=== PATIENT | male | born 1960 | race Caucasian/White ===

== ENCOUNTER 2024-06-12 01:56 | Day surgery (SDC) | payer BC, SELFPAY ==
[2024-03-05 15:05] VITALS: BMI 29.0
--- NOTE | 2024-03-13 08:29 | SUR.PREOP ---
Pt's called regarding her was feeling ill yesterday but took his prep and proceeded to continue to feel ill. Patient ended up vomiting prep and cancelled his procedure today. Pt rescheduled to 05/12 at 1230.
[2024-06-05 11:01] VITALS: BMI 28.8
--- OUTSIDE RECORDS SUMMARY | 2024-06-12 02:02 | XMS_ITS | Referral Summary ---
Author Organization [facility] Address [address] [place] [address] Care Team Providers Care Service Liaison Representative Name Role Phone Deon Kim MD Primary Care Provider Allergies No known active allergies Medications losartan (COZAAR) 100 mg tablet 10/18/2022 Active metFORMIN (GLUCOPHAGE) 500 mg tablet 09/27/2022 Activ e metoprolol XL (TOPROL-XL) 200 mg extended release tablet 10/18/2022 Acti ve rosuvastatin (CRESTOR) 40 mg tablet 10/18/2022 Active spironolactone (ALDACTONE) 50 mg tablet 07/24/2022 Active amoxicillin 500 mg capsule TAKE 1 CAPSULE BY MOUTH EVERY 8 HOURS 08/01/2022 Active Active Problems Problem Noted Date Diagnosed Date Multiple benign melanocytic nevi of upper extremity, lower extremity, and trunk 02/10/2021 10/26/2022 Other viral warts 02/10/2021 10/26/2022 Seborrheic keratosis 02/10/2021 10/26/2022 Solar lentiginosis 02/10/2021 10/26/2022 Arteriosclerosis of coronary artery 02/19/2020 10/26/2022 Prediabetes 04/03/2019 10/26/2022 Abnormal EKG 06/04/2018 10/26/2022 Obesity 07/23/2016 10/26/2022 Snoring 07/23/2016 10/26/2022 Hypercholesterolemia 09/15/2014 10/26/2022 Primary hypertension 09/15/2014 10/26/2022 Immunizations Name Administration Dates Next Due Influenza, Quadrivalent, Malika l Culture-based MDCK, Preservative Free, Antibiotic Free, Intramuscular 03/17/2022 Influenza, Quadrivalent, Spl it, Preservative Free, Intramuscular 02/12/2020,02/28/2019 Influenza, Trivalent, IM (MDV) 02/23/2021 Tdap 11/20/2017 Social History Tobacco Use Types Packs/Day Years Used Date Smoking Tobacco: Never Assessed Sex and Gender Information Value Date Recorded Sex Assigned at Not on file 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 Gender Identity Not on file Sexual Orientation Not on file Last Filed Vital Signs Vital Sign Reading Time Taken Comments Blood Pressure - - Pulse - - Temperature - - Respiratory Rate - - Oxygen Saturation - - Inhaled Oxygen Concentration - - Weight 86.2 kg (190 lb) 10/26/2022 9:34 AM CDT Height 172.7 cm (5' 8 ) 10/26/2022 9:34 AM CDT Body Mass Index 28.89 10/26/2022 9:34 AM CDT Plan of Treatment Not on file Insurance [employer] Care Teams Service Liaison Representative Relationship Specialty Start Date End Date Deon Kim MD [address] [place] [address] PCP - General Internal Medicine 10/26/22
--- OUTSIDE RECORDS SUMMARY | 2024-06-12 02:02 | XMS_ITS | Patient Health Summary ---
Author Organization [facility] Address [address] [place] [address] Care Team Providers Care Balance Staff Inspector Name Role Phone Deon Kim MD Primary Care Provider [phone] Note from [facility],non-owned Affiliates and Associated Physician Practices is amultiple site organization consisting of ambulatory clinics and hospital sitesin [place], [place], [place] and [place]. This disclosure is being madepursuant to the Care Everywhere program and may not contain all information available regarding this patient. Last updated 18.[facility] Allergies No known active allergies Medications * Be aware that medications may not be up to date on this document. Alwaysverify current medications with the patient. * atorvastatin (LIPITOR) 20 MG tablet(Started 03/18/2018) 40 mg at bedtime * losartan (COZAAR) 25 MG tablet(Started 05/27/2018) at bedtime * TOPROL XL 100 MG tablet(Started 04/15/2018) 50 mg at bedtime * aspirin (ASPIRIN) 81 MG tablet Take 81 mg by mouth once daily * Douglas-3 Fatty Acids (FISH OIL PO) Take by mouth once daily * ondansetron (ZOFRAN) 8 MG tablet(Started 07/25/2018) Take 1 tablet by mouth every 6 hours as needed for Nausea/Vomiting * metFORMIN (GLUCOPHAGE) 500 MG tablet metformin 500 mg tablet * simvastatin (ZOCOR) 40 MG tablet simvastatin 40 mg tablet TAKE 1 TABLET AT BEDTIME FOR CHOLESTEROL * rosuvastatin (CRESTOR) 40 MG tablet(Started 11/20/2020) Active Problems Problem Noted Date Diagnosed Date Other viral warts 02/10/2021 Solar lentiginosis 02/10/2021 Multiple benign melanocytic nevi of upper extremity, lower extremity, and trunk 02/10/2021 Seborrheic keratosis 02/10/2021 Social History Tobacco Use Types Packs/Day Years Used Date Smoking Tobacco: Never Smokeless Tobacco: Never Alcohol Use Standard Drinks/Week Comments Yes 0 (1 standard drink = 0.6 oz pur e alcohol) Sex and Gender Information Value Date Recorded Sex Assigned at Male 12/07/2022 11:07 PM CDT Gender Identity Male 12/07/2022 11:07 PM CDT Sexual Orientation Not on file Last Filed Vital Signs Vital Sign Reading Time Taken Comments Blood Pressure 133/90 09/16/2018 10:28 AM CDT Pulse 73 09/16/2018 10:28 AM CDT Temperature 36.4 ??C (97.5 ??F) 09/16/2018 10:28 AM C DT Respiratory Rate 16 07/25/2018 6:16 PM CDT Oxygen Saturation 96% 09/16/2018 10:28 AM CDT Inhaled Oxygen Concentration - - Weight 88.9 kg (196 lb) 09/16/2018 10:28 AM CDT Height 177.8 cm (5' 10 ) 09/16/2018 10:28 AM CDT Body Mass Index 28.12 09/16/2018 10:28 AM CDT Medical Devices Implanted Type Area Project Asst Device Identifier Shelf Expiration Date Model / Serial / Lot Mesh Srg 3dmax 7x5in Xl 3d Crv Contr Sl Implanted:Qty: 1 on 07/25/2018 by Joshua Hopkins MD at [facility] Right: Abdomen [employer] 10/07/2022 [id number] / / [id number] Mesh Srg 3dmax 7x5in Xl 3d Crv Contr Sl Implanted:Qty: 1 on 07/25/2018 by Joshua Hopkins MD at [facility] Left: Abdomen [employer] 09/07/2022 [id number] / / [id number] Procedures * VA DESTRUCT BENIGN LESION, 1-14(Performed 02/10/2021) Performed for Other viral warts * CARDIAC RHYTHM STRIP ORDER(Performed 07/29/2018) * APHERESIS/TRANSFUSION ORDER(Performed 07/29/2018) * ENDOTRACHEAL TUBE NOTE(Performed 07/25/2018) * ROBOTIC ASSISTED REPAIR INGUINAL HERNIA(Performed 07/25/2018) Performed for Diagnosis unknown * BLOOD TYPE VERIFICATION(Performed 07/25/2018) * XR CHEST 2VW(Performed 07/23/2018) Performed for Pre-op testing * EKG 12-LEAD(Performed 07/23/2018) Performed for Pre-op testing * TYPE + SCREEN PANEL(Performed 07/23/2018) Performed for Pre-op testing * CBC W AUTO DIFFERENTIAL(Performed 07/23/2018) Performed for Pre-op testing * COMPREHENSIVE METABOLIC PANEL(Performed 07/23/2018) Performed for Pre-op testing * DERMATOPATHOLOGY(Performed 06/06/2012) Results * VA DESTRUCT BENIGN LESION, 1-14 (02/10/2021 12:13 PM CDT) Narrative Antonio Koch MD - 02/10/2021 12:13 PM CDT Viridiana Carrion MD ? 02/10/2021 12:13 PM Diagnosis and treatment options discussed for verrucae vulgaris. Verbal consent obtained. Cryotherapy (Liquid Nitrogen) performed to 2 VV lesions (mid-frontal scalp x1 and L cheek x1) for 10-15 seconds each. Number of cycles: 2. Wound care reviewed and post-cryotherapy handout given. Viridiana Carrion MD Dermatology Resident, PGY-3 [facility], Department of Dermatology Antonio Koch MD PROCEDURE/MINOR SURG ICAL ORDERABLES * CARDIAC RHYTHM STRIP ORDER (07/29/2018 9:14 PM CDT) Narrative 07/29/2018 9:14 PM CDT Ordered by an unspecified provider. Scanned Document CARDIAC SERVICES ORD ERABLES * APHERESIS/TRANSFUSION ORDER (07/29/2018 9:14 PM CDT) Narrative 07/29/2018 9:14 PM CDT Ordered by an unspecified provider. Scanned Document NURSING - VITAL SIGN S AND ASSESSMENT * BLOOD TYPE VERIFICATION (07/25/2018 9:58 AM CDT) ABO A 07/25/2018 10:30 AM CDT [facility] Rh Type Negative 07/25/2018 10:30 AM CDT [facility] Blood Bank BLOOD SPECIMEN / Unknown Venipuncture / Unknown 07/25/2018 9:58 AM CDT 07/25/2018 10:08 AM CDT Joshua Hopkins MD LAB - BLOOD BANK ORD ERABLES [facility] [address] [phone] * XR CHEST 2VW (07/23/2018 1:55 PM CDT) Anatomical Region Laterality Modality Chest Radiographic Aiyana ging 07/23/2018 1:57 PM CDT Narrative 07/23/2018 1:57 PM CDT Exam: PA and lateral views of the chest. History: Encounter for other preprocedural examination Findings/Impression: No previous studies are available for comparison. No focal consolidation, pleural effusion, or pneumothorax is identified. The cardiac silhouette and mediastinal contours are normal. Reading Radiologist: Roshan Mcleod MD on 07/23/2018 at 1:57 PM Procedure Note Roshan Mcleod MD - 07/23/2018 Exam: PA and lateral views of the chest. History: Encounter for other preprocedural examination Findings/Impression: No previous studies are available for comparison. No focal consolidation, pleural effusion, or pneumothorax is identified. The cardiac silhouette and mediastinal contours are normal. Reading Radiologist: Roshan Mcleod MD on 07/23/2018 at 1:57 PM Joshua Hopkins MD DIAGNOSTIC IMAGING O RDERABLES * EKG 12-LEAD (07/23/2018 1:32 PM CDT) Ventricular Rate 69 BPM [facility] Atrial Rate 69 BPM [facility] P-R Interval 166 ms [facility] QRS Duration ms 74 ms [facility] Q-T Interval ms 372 ms [facility] QTC Calculation (Bezet) 398 ms [facility] Calculated P [place] 62 degrees [facility] Calculated R [place] 30 degrees [facility] Calculated T [place] 52 degrees [facility] Interpretation EKG NORMAL SINUS RHYTHM NORMAL ECG NO PREVIOUS ECGS AVAILABLE Confirmed by MD ZEB, EMMANUELLE Turk (3) on 07/24/2018 9:33:43 AM [facility] MUSE 07/23/2018 1:32 PM CDT 07/24/2018 9:33 AM CDT Joshua Hopkins MD ECG ORDERABLES [facility] * TYPE + SCREEN PANEL (07/23/2018 1:07 PM CDT) ABO A 07/23/2018 2:20 PM CDT [facility] Rh Type Negative 07/23/2018 2:20 PM CDT [facility] Comment:History checked. Col lect retype. Antibody Screen Negative 07/23/2018 2:20 PM CDT [facility] Blood Bank BLOOD SPECIMEN / Unknown Venipuncture / Unknown 07/23/2018 1:07 PM CDT 07/23/2018 1:46 PM CDT Joshua Hopkins MD LAB - BLOOD BANK ORD ERABLES Performing Organization Address City/[facility]/ZIP Co de Phone Number [facility] [address] [phone] * (ABNORMAL) CBC W AUTO DIFFERENTIAL (07/23/2018 1:07 PM CDT) WBC 8.8 4.4 - 10.7 x10E9/L 07/23/2018 1:58 PM CDT [facility] WBC Corrected x10E9/L 07/23/2018 1:58 PM CDT [facility] RBC 4.79 3.80 - 5.40 x10E12/L 07/23/2018 1:58 PM CDT [facility] Hemoglobin 14.8 12.0 - 17.6 gm/dL 07/23/2018 1:58 PM CDT [facility] Hematocrit 44.2 35.2 - 51.7 % 07/23/2018 1:58 PM CDT [facility] MCV 92.3 80.7 - 98.3 fl 07/23/2018 1:58 PM CDT [facility] MCH 30.9 26.7 - 34.0 pg 07/23/2018 1:58 PM CDT [facility] MCHC 33.5 30.8 - 35.9 gm/dL 07/23/2018 1:58 PM [facility] Platelet Count 217 153 - 416 x10E9/L 07/23/2018 1:58 PM [facility] RDW-CV 12.2 12.1 - 14.9 % 07/23/2018 1:58 PM [facility] MPV 10.4 9.4 - 12.9 fl 07/23/2018 1:58 PM [facility] Neutrophils % 66.3 44.0 - 73.0 % 07/23/2018 1:58 PM [facility] Lymphocytes % 23.1 20.0 - 43.0 % 07/23/2018 1:58 PM [facility] Monocytes % 7.1 5.0 - 13.0 % 07/23/2018 1:58 PM [facility] Eosinophils % 2.1 0.0 - 6.0 % 07/23/2018 1:58 PM [facility] Basophils % 0.6 0.0 - 2.0 % 07/23/2018 1:58 PM [facility] Immature Granulocytes 0.8 0 - 1 % 07/23/2018 1:58 PM [facility] Neutrophil Absolute 5.83 2.01 - 7.14 x10E9/L 07/23/2018 1:58 PM [facility] Lymphocytes Absolute 2.03 1.07 - 3.94 x10E9/L 07/23/2018 1:58 PM [facility] Monocytes Absolute 0.62 0.26 - 1.07 x10E9/L 07/23/2018 1:58 PM [facility] Eosinophils Absolute 0.18 0 - 0.47 x10E9/L 07/23/2018 1:58 PM T [facility] Basophils Absolute 0.05 0 - 0.08 x10E9/L 07/23/2018 1:58 PM [facility] Immature Granulocytes Absolute 0.07(H) 0.00 - 0.06 x10E9/L 07/23/2018 1:58 PM [facility] nRBC Auto 0 /100 WBC 07/23/2018 1:58 PM CDT [facility] Blood BLOOD SPECIMEN / Unknown Venipuncture / Unknown 07/23/2018 1:07 PM CDT 07/23/2018 1:46 PM CDT Joshua Hopkins MD LAB - HEMATOLOGY ORD ERABLES [facility] [address] [place] [address] * (ABNORMAL) COMPREHENSIVE METABOLIC PANEL (07/23/2018 1:07 PM CDT) [facility] Glucose 100 74 - 106 mg/dL 07/23/2018 2:26 PM CDT [facility] Sodium 137 136 - 145 mmol/L 07/23/2018 2:26 PM CDT [facility] Potassium 4.1 3.5 - 5.1 mmol/L 07/23/2018 2:26 PM CDT [facility] Chloride 106 98 - 107 mmol/L 07/23/2018 2:26 PM CDT [facility] CO2 26 22 - 31 mmol/L 07/23/2018 2:26 PM CDT [facility] Calcium 9.5 8.5 - 10.1 mg/dL 07/23/2018 2:26 PM CDT [facility] Anion Gap 5(L) 8 - 16 mmol/L 07/23/2018 2:26 PM CDT [facility] BUN 13 7 - 21 mg/dL 07/23/2018 2:26 PM CDT [facility] Creatinine 0.97 0.50 - 1.30 mg/dL 07/23/2018 2:26 PM CDT [facility] Alkaline Phosphatase 67 38 - 126 U/L 07/23/2018 2:26 PM CDT [facility] ALT 43 13 - 61 U/L 07/23/2018 2:26 PM CDT [facility] AST 22 5 - 40 U/L 07/23/2018 2:26 PM CDT [facility] Protein Total 7.9 6.4 - 8.2 gm/dL 07/23/2018 2:26 PM CDT [facility] Albumin 4.3 3.4 - 5.0 gm/dL 07/23/2018 2:26 PM CDT [facility] Bilirubin Total 0.4 0.2 - 1.0 mg/dL 07/23/2018 2:26 PM CDT [facility] eGFR by MDRD >60 >60 mL/min/1.7 3m2 07/23/2018 2:26 PM CDT [facility] eGFR by MDRD >60 >60 mL/min/1.7 3m2 07/23/2018 2:26 PM CDT [facility] Blood BLOOD SPECIMEN / Unknown Venipuncture / Unknown 07/23/2018 1:07 PM CDT 07/23/2018 1:46 PM CDT Joshua Hopkins MD LAB - CHEMISTRY ZEB SERVIN [facility] [address] [place] [phone] * DERMATOPATHOLOGY (06/06/2012 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 ??Right neck: SEBORRHEIC KERATOSIS B. ??Right groin: ACROCHORDON (SOFT FIBROMA, SKIN TAG) CLINICAL DATA: A: Acrochordon vs SK. B: Acrochordon. GROSS DESCRIPTION: A: ??Received is one formalin filled container labeled with the patient's name and designated right neck. The specimen consists of a shave biopsy measuring 7x5x2 mm. Jar 0. B: ??Received is one formalin filled container labeled with the patient's name and designated right groin. The specimen consists of a shave biopsy measuring [id number], 5x4x2 mm. Jar 0. MICROSCOPIC DESCRIPTION: SPECIMEN ??A: Sections show an acanthotic lesion composed of relatively uniform keratinocytes. There is hyperkeratosis and pseudo horn cysts formation. SPECIMEN ??B: There is a gently folded epidermis surrounding a connective tissue core in which fat and collagen are intermingled. Final Diagnosis performed by Judith Enrique M.D. Electronically signed 06/10/2012 1:18:16PM [facility] Comment: Performed at: Dermatopathology Laboratory [facility] Department of Dermatology [address] [place] [address], [address] [place] [address] Phone number: [phone] Toll Free: [phone] FAX: [phone] Skin (tissue) specimen (specimen) 06/06/2012 06/09/2012 Narrative [facility] - 06/10/2012 1:18 PM ROCKET TEST FIRE WORKER Preferred Lab:->Derm-Path Specimen A: Type->Shave ?Site->right neck ?History->itchy brown, pink pedunculated papule ?Impression->acrochordon vs. sk ?Check Margins:->N/A ?Prior Biopsy->N/A Specimen B: Type->Shave ?Site->right groin ??- 2 specimens in one jar ?History->pink pedunculated itchy papules ?Impression->acrochordons ?Check Margins:->N/A ?Prior Biopsy->N/A Daniela Mcdonald MD LAB - PATHOLOGY/CYTO LOGY ORDERABLES Performing Organization Address City/State/[facility] Co de Phone Number [facility] [address] [place] [address], [facility] [phone] Care Teams Balance Staff Inspector Relationship Specialty Start Date End Date Deon Kim MD [address] [place] [address] [address] [place] [address] PCP - General 06/06/12
--- OUTSIDE RECORDS SUMMARY | 2024-06-12 02:02 | XMS_ITS | CONTINUITY OF CARE DOCUMENT ---
Author Name ashley ramirez Address Unknown Organization [facility] Address [address] [place] [address] Phone [phone] Care Team Providers [facility] [employer] Professor Name Role Phone Agusto Pro MD Unavailable [phone] KAYLA WEBB MD Unavailable KAYLA WEBB MD Unavailable [phone] PROBLEMS Condition Status Date Provider Notes Family History Coronary Hear t Disease male < 55: completed - Agusto Pro MD Family History Coronary Hear t Disease female < 65: completed - Agusto Pro MD Dyslipidemia active Agusto Pro MD HTN essential active Agusto Pro MD Family Hx heart disease completed - Agusto Pro MD Chest pain-nl echo and stres s test 09/24 completed - Wade Roberts Snoring - 08/2016 NML SLEEP STUDY active Agusto Pro MD Obesity active Agusto Pro MD Abnormal EKG active Agusto Pro MD Preop exam completed - Agusto Pro MD Prediabetes active Agusto Pro MD CAD active Wade Roberts ENCOUNTERS Date Type Provider Location Encounter Diag nosis - In-person encounter Office Visit Agusto Pro MD [facility] - In-person encounter Office Visit Agusto Pro MD [place] [facility] - In-person encounter Office Visit Agusto Pro MD [facility] - In-person encounter Office Visit Agusto Pro MD [place] [facility] - In-person encounter Office Visit Agusto Pro MD [place] [facility] - In-person encounter Office Visit Agusto Pro MD [facility] Chest pain-nl echo a nd stress test 09/24CAD - In-person encounter Office Visit Agusto Pro MD [place] [facility] - In-person encounter Office Visit Agusto Pro MD, [place] [facility] Preop examPrediabete s - In-person encounter Office Visit Agusto Pro MD [place] [facility] Abnormal EKG - In-person encounter Office Visit Agusto Pro MD [place] [facility] Snoring - 08/2016 NML SLEEP STUDY - In-person encounter Office Visit Agusto Pro MD [place] [facility] DyslipidemiaSnoring - 08/2016 NML SLEEP STUDYObesity - In-person encounter Office Visit Agusto Pro MD [place] [facility] Family History Coronary Heart Disease male < 55:Family History Coronary Heart Disease female < 65:Family Hx heart disease - In-person encounter Office Visit Victor Manuel Miller MD [place] [facility] - In-person encounter Office Visit Agusto Pro MD [place] [facility] - In-person encounter Office Visit Agusto Pro MD [place] [facility] HTN essentialChest pain-nl echo and stress test 09/24 VITAL SIGNS Date Observation Value Provider Body Mass Index (Ratio) 27.02 kg/m2 Erick Zamudio blood pressure, cuff size regular Ke maryam De Oliveira blood pressure, diastolic 80 mm[Hg] Ke rri Alvino blood pressure, systolic 130 mm[Hg] Bushra Sullivanjayashree oxygen saturation, oximetry 94 % Zeina Sullivanjayashree respiratory rate E&M 12 /min Zeina andrejayashree pulse rate 73 /min Zeina Bell er weight E&M 183 [lb_av] Zeina Bell lder height E&M 69 [in_i] Zeina Bell er Body Mass Index (Ratio) 28.65 kg/m2 [facility] Reena respiratory rate E&M 16 /min Mayuri Lucie leonardo weight E&M 194 [lb_av] [facility] height E&M 69 [in_i] [facility] blood pressure, cuff size regular [facility] blood pressure, diastolic 83 mm[Hg] [facility] blood pressure, systolic 134 mm[Hg] [facility] pulse [facility] 74 /min [facility] oxygen saturation, oximetry 98 % [facility] Body Mass Index (Ratio) 29.53 kg/m2 [facility] blood pressure, cuff size regular rret blood pressure, diastolic 86 mm[Hg] Kael rret blood pressure, systolic 139 mm[Hg] Jar ret pulse rate 80 /min Harpreet oxygen saturation, oximetry 97 % Haprreet respiratory rate E&M 12 /min Harpreet weight E&M 200 [lb_av] Harpreet y height E&M 69 [in_i] Harpreet y Body Mass Index (Ratio) 28.11 kg/m2 Chary Schmitz blood pressure, diastolic 108 mm[Hg] [facility] blood pressure, systolic 176 mm[Hg] Miky Cruz oxygen saturation, oximetry 98 % Dee Dee Cruz pulse rate 64 /min Dee Dee Cruz respiratory rate E&M 18 /min Dee Dee luna weight E&M 190.4 [lb_av] Dee Dee Cruz height E&M 69 [in_i] Dee Dee Anthony Body Mass Index (Ratio) 29.38 kg/m2 Chary chiqui Nadir blood pressure, diastolic 100 mm[Hg] Mckenzie nkLog blood pressure, systolic 170 mm[Hg] Camila kLogkaylah blood pressure, cuff size large Tr enrrique De Leon blood pressure, diastolic 100 mm[Hg] Tr enrrique De Leon blood pressure, systolic 170 mm[Hg] Doretha De Leon oxygen saturation, oximetry 98 % Edmar De Leon respiratory rate E&M 18 /min Dorethajosep De Leon pulse rate 71 /min Edmar De Leon weight E&M 199 [lb_av] Edmar De Leon height E&M 69 [in_i] Edmar De Leon Body Mass Index (Ratio) 29.09 kg/m2 Alber Roberts blood pressure, diastolic 90 mm[Hg] Rh ana Khan blood pressure, systolic 143 mm[Hg] Rho cassandra Khan oxygen saturation, oximetry 99 % Ashley Khan blood pressure, cuff size regular Rh ana Khan respiratory rate E&M 16 /min Ashley Khan pulse rate 76 /min Ashley Khan weight E&M 197 [lb_av] Ashley Khan height E&M 69 [in_i] Ashley Khan Body Mass Index (Ratio) 29.38 kg/m2 Isidoro Pham respiratory rate E&M 16 /min [facility] blood pressure, diastolic, left arm 94 mm [Hg] [facility] blood pressure, systolic, left arm 173 mm [Hg] [facility] blood pressure, diastolic, right arm 102 mm[Hg] [facility] blood pressure, systolic, right arm 183 m m[Hg] [facility] blood pressure, diastolic 94 mm[Hg] [facility] blood pressure, systolic 173 mm[Hg] [facility] pulse rate 71 /min [facility] oxygen saturation, oximetry 97 % [facility] weight E&M 199 [lb_av] [facility] height E&M 69 [in_i] [facility] Body Mass Index (Ratio) 28.94 kg/m2 Mati Dey blood pressure, cuff size regular Ra murali [facility] blood pressure, diastolic 94 mm[Hg] Ra murali uss blood pressure, systolic 152 mm[Hg] [facility] respiratory rate E&M 16 /min [facility] oxygen saturation, oximetry 96 % [facility] pulse rate 78 /min [facility] weight E&M 196 [lb_av] [facility] [in_i] [facility] Body [facility] Index (Ratio) 29.09 kg/m2 Agusto Pro MD blood pressure, diastolic 80 mm[Hg] Da jannet Nelsy blood pressure, systolic 142 mm[Hg] Dac ia Nelsy oxygen saturation, oximetry 96 % Saniya Nelsy respiratory rate E&M 16 /min Saniya V oss pulse rate 78 /min Saniya Nelsy weight E&M 197 [lb_av] Saniya Nelsy height E&M 69 [in_i] Saniya Nelsy Body Mass Index (Ratio) 29.38 kg/m2 Alber meraz [facility] blood pressure, diastolic 70 mm[Hg] Ki brennen Monroy blood pressure, systolic 140 mm[Hg] Dieudonne bruce Monroy oxygen saturation, oximetry 97 % Kutr Monroy respiratory rate E&M 16 /min [facility] 92 /min Kurt Monroy weight E&M 199 [lb_av] [facility] E&M 69 [in_i] Kurt Madison Body Mass Index (Ratio) 30.12 kg/m2 Alber meraz [facility] blood pressure, resting Yes Agusto Pro MD blood pressure, cuff size regular Alyx Worrell blood pressure, diastolic 90 mm[Hg] Alyx Worrell blood pressure, systolic 130 mm[Hg] Luiz Worrell oxygen saturation, oximetry 98 % Camiaiden Worrell pulse rate 79 /min Cami Worrell respiratory rate E&M 16 /min Cami Worrell weight E&M 204 [lb_av] Cami Worrell height E&M 69 [in_i] Cami Worrell blood pressure, diastolic 80 mm[Hg] Raffaele Corrales blood pressure, systolic 144 mm[Hg] Holly Corrales pulse rate 81 /min Kush galvan oxygen saturation, oximetry 98 % Kush Corrales respiratory rate E&M 16 /min Olivia Corrales Body Mass Index (Ratio) 28.91 kg/m2 Bren Corrales weight E&M 195.8 [lb_av] Kush rosales blood pressure, diastolic 96 mm[Hg] Raffaele Corrales blood pressure, systolic 156 mm[Hg] Holly Corrales pulse rate 83 /min Kush galvan oxygen saturation, oximetry 96 % Kush Corrales respiratory rate E&M 16 /min Olivia Corrales Body Mass Index (Ratio) 30.06 kg/m2 Bren Corrales weight E&M 203.6 [lb_av] Kush rosales blood pressure, diastolic, left arm 89 mm [Hg] Ibis Thomas blood pressure, systolic, left arm 157 mm [Hg] Ibis Thomas blood pressure, diastolic, right arm 92 m m[Hg] Ibis Thomas blood pressure, systolic, right arm 161 m m[Hg] Ibis Thomas blood pressure, diastolic 89 mm[Hg] Me khari Thomas blood pressure, systolic 157 mm[Hg] Silvia larry Thomas pulse rate 77 /min Ibis Thomas Body Mass Index (Ratio) 28.35 kg/m2 [facility] ssa Thomas oxygen saturation, oximetry 98 % Ibis Thomas respiratory rate E&M 14 /min Ibis Thomas weight E&M 192 [lb_av] Ibis Thomas blood pressure, diastolic, left arm 83 mm [Hg] Ibis Thomas blood pressure, systolic, left arm 150 mm [Hg] Ibis Thomas blood pressure, diastolic, right arm 94 m m[Hg] Ibis Thomas blood pressure, systolic, right arm 157 m m[Hg] Ibis Thomas blood pressure, diastolic 83 mm[Hg] Me khari Thomas blood pressure, systolic 150 mm[Hg] Silvia larry Thomas pulse rate 80 /min Ibis Thomas oxygen saturation, oximetry 98 % Ibis Thomas Body Mass Index (Ratio) 28.79 kg/m2 [facility] ssa Thomas respiratory rate E&M 14 /min Ibis Thomas weight E&M 195 [lb_av] Ibis Thomas height E&M 69 [in_i] Ibis Thomas ALLERGIES No Known Drug Allergies RESULTS Date Observation Value Provider Reference Range Interpretation Location microalbumin/creati nine ratio, urine 3 MCG/MG CREAT [facility] <30 Normal microalbumin/total urine volume 5 mg/L [facility] Units converted. See lab report for original value. Normal creatinine, random, urine 143 mg/dL [facility] 20-320 Normal calcium, serum 9.8 mg/dL [facility] 8.6-10.3 Normal carbon dioxide, venous blood 26 mmol/L [facility] 20-32 Normal chloride, serum 103 mmol/L [facility] 98-110 Normal potassium, serum 4.5 mmol/L [facility] 3.5-5.3 Normal sodium, serum 137 mmol/L [facility] 135-146 Normal urea nitrogen/creatinine ratio, serum NOT APPLICABLE (calc) [facility] 6-22 creatinine, serum 0.96 mg/dL [facility] 0.70-1.35 Normal urea nitrogen, blood 19 mg/dL [facility] 7-25 Normal blood glucose, random 119 mg/dL [facility] 65-99 High cholesterol, non-HDL, total 83 MG/DL (CALC) [facility] <130 Normal cholesterol/HDL ratio, serum, percent 3.3 (calc) [facility] <5.0 Normal LDL cholesterol, serum 51 MG/DL (CALC) [facility] Normal triglyceride, serum, fasting 275 mg/dL [facility] <150 High HDL cholesterol, serum 36 mg/dL [facility] > OR = 40 Low cholesterol, serum 119 mg/dL [facility] <200 Normal thyroid stimulating hormone, serum 1.49 u[IU]/mL [facility] thyroxine, serum, free 0.8 ng/dL [facility] hemoglobin A1C, blood, as % of total hemoglobin 5.9 % [facility] platelet count 197 10*3/mm3 [facility] platelet count 197 10*3/uL [facility] red blood cell distribution width 12.7 % [facility] mean corpuscular hemoglobin concentration, RBC 33.0 g/dL [facility] mean corpuscular hemoglobin, RBC 30.0 pg [facility] mean corpuscular volume, RBC 90.9 fL [facility] hematocrit, blood 40.9 % [facility] hemoglobin, blood 13.5 g/dL [facility] erythrocyte (RBC) count 4.50 10*6/mm3 [facility] leukocyte count, blood 5.5 10*3/mm3 [facility] carbon dioxide, venous blood 26 mmol/L [facility] protein, total, serum 6.7 g/dL [facility] albumin, serum 4.3 g/dL [facility] bilirubin, serum, total 0.3 mg/dL [facility] alkaline phosphatase, serum 42 1/L [facility] alanine aminotransferase (SGPT), serum 23 1/L [facility] aspartate aminotransferase (SGOT), serum 20 1/L [facility] calcium, serum 9.4 mg/dL [facility] blood glucose, random 110 mg/dL [facility] creatinine, serum 0.93 mg/dL [facility] urea nitrogen, blood 13 mg/dL [facility] carbon dioxide, serum, total 26 mmol/L [facility] chloride, serum 104 mmol/L [facility] potassium, serum 4.5 mmol/L [facility] sodium, serum 141 mmol/L [facility] triglyceride, serum, random 95 mg/dL [facility] triglyceride, serum, fasting 95 mg/dL [facility] HDL cholesterol, serum 40 mg/dL [facility] LDL cholesterol, serum 39 mg/dL [facility] cholesterol, serum 97 mg/dL [facility] lipoprotein, beta, serum, point, quantitative, calculated 27 mg/dL [facility] 0-99 very low density lipoproteins 51 mg/dL [facility] 5-40 High HDL cholesterol, serum 35 mg/dL [facility] >39 Low triglyceride, serum, random 255 mg/dL [facility] 0-149 High cholesterol, serum 113 mg/dL [facility] [phone]/12 /31 prothrombin time (patient) 11.2 s [facility] 9.1-12.0 international normalized ratio (INR) 1.1 [facility] 0.8-1.2 calcium, serum 9.7 mg/dL [facility] 8.7-10.2 carbon dioxide, venous blood 21 mmol/L [facility] 20-29 chloride, serum 102 mmol/L [facility] 96-106 potassium, serum 4.3 mmol/L [facility] 3.5-5.2 sodium, serum 141 mmol/L [facility] [phone]/12 /31 urea nitrogen/creatinine ratio, serum 14 [facility] 9-20 eGFR if 97 mL/min/{1.73_ m2} [facility] >59 eGFR if not 84 mL/min/{1.73_ m2} [facility] >59 creatinine, serum 0.99 mg/dL [facility] 0.76-1.27 urea nitrogen, blood 14 mg/dL [facility] 6-24 blood glucose, random 101 mg/dL [facility] 65-99 High basophil count, absolute 0.0 x10E3/uL [facility] 0.0-0.2 Eosinophil Absolute Count 0.2 X10E3/UL [facility] 0.0-0.4 monocyte count, blood, automated 0.5 X10E3/UL [facility] 0.1-0.9 lymphocyte count, blood, automated 2.0 X10E3/UL [facility] 0.7-3.1 Absolute Neutrophils 6.2 X10E3/UL [facility] 1.4-7.0 basophils as percent of blood leukocytes 0 % [facility] Not Estab. eosinophils as percent of blood leukocytes 2 % [facility] Not Estab. monocytes as percent of blood leukocytes 5 % [facility] Not Estab. lymphocytes as percent of blood leukocytes 22 % [facility] Not Estab. neutrophils as percent of blood leukocytes 70 % [facility] Not Estab. platelet count 223 X10E3/UL [facility] [phone]/12 /31 red blood cell distribution width 13.2 % [facility] 12.3-15.4 mean corpuscular hemoglobin concentration, RBC 34.0 G/DL [facility] 31.5-35.7 mean corpuscular hemoglobin, RBC 31.1 pg [facility] 26.6-33.0 mean corpuscular volume, RBC 91 fL [facility] 79-97 hematocrit, blood 42.3 % [facility] 37.5-51.0 hemoglobin, blood 14.4 g/dL [facility] 13.0-17.7 erythrocyte (RBC) count 4.63 X10E6/UL [facility] 4.14-5.80 leukocyte count, blood 9.0 X10E3/UL [facility] 3.4-10.8 hemoglobin A1C, blood, as % of total hemoglobin 6.2 % Agusto Pro MD HISTORY OF MEDICATION USE Medication Status Instructions Dates Provider Indications Com ments Ozempic 0.25 mg or 0.5 mg (2 mg/3 mL) pen injector active Agusto Pro MD Vascepa 1 gram capsule active Take 2 capsule by mouth twice a day Agusto Pro MD Rybelsus 7 mg tablet completed Take 1 tablet by mouth once a day - Agusto Marreros 3 mg tablet completed 1 tablet by mouth once a day - Agusto Huntbelsus 14 mg tablet completed Take 1 tablet by mouth once a day - Agusto Pro MD rosuvastatin 40 mg tablet active TAKE 1 TABLET NIGHTLY [facility] metoprolol succinate 200 mg tablet extended release 24 hr active TAKE 1 TABLET ONCE DAILY [facility] spironolactone 50 mg tablet active Take 1 tablet by mouth once a day Zeina De Oliveira Vascepa 1 gram capsule completed Take 2 capsule by mouth twice a day - Dominique Schmitz metformin 500 mg tablet active Agusto Pro MD losartan 100 mg tablet active Take 1 tablet once a day Kwaku Bishop COZAAR 25 MG ORAL TABLET completed po daily - Agusto Pro MD Fish Oil 120-180 mg capsule completed 1 tablet once a day - Kush Corrales rosuvastatin 40 mg tablet completed Take 1 tablet every night - Christine Cheema Toprol XL 200 mg tablet extended release 24 hr completed 1 tablet once a day - Christine Cheema MULTIVITAMINS ORAL CAPSULE active 1 tablet once a day Ibis Thomas ASPIRIN 81 MG ORAL TABLET active 1 tablet once a day Ibis Thomas SOCIAL HISTORY Date Observation Value Provider smoking status Never smoker Agusto Lim social history reviewed E&M revi ewed - no changes required Sam Valles smoking status Never smoker Mayuri Holley smoking status Never smoker Agusto Lim social history reviewed E&M revi ewed - no changes required Agusto Pro MD social history reviewed E&M revi ewed - no changes required Dominique Schmitz social history E&M S moking History: P chad has never smoked. Agusto Pro MD social history reviewed E&M revi ewed - no changes required Agusto Pro MD smoking status Never smoker Edmar draper social history reviewed E&M revi ewed - no changes required Wade Roberts social history E&M Smoking Histo ry: P chad has never smoked. Wade Alejandra smoking status Never smoker Ashley Erin social history E&M S moking History: P chad has never smoked. Agusto Pro MD social history reviewed E&M revi ewed - no changes required Agusto Pro MD smoking status Never smoker Rizwan Jeff social history E&M Smoking Histo ry: P chad has never smoked. Agusto Pro MD social history reviewed E&M revi ewed - no changes required Agusto Pro MD number of grandchildren Agusto Pro MD smoking status Never smoker Connie Maddie arias social history reviewed E&M revi ewed - no changes required Wade Roberts smoking status Never smoker Saniya Nelsy social history reviewed E&M revi ewed - no changes required Wade Roberts smoking status Never smoker Kurt Rubinaiden lucie social history reviewed E&M revi ewed - no changes required Agusto Pro MD social history E&M Smoking Histo ry: P chad has never smoked. Agusto Pro MD smoking status Never smoker Cami Gm social history E&M Smoking Histo ry: Patient has never smoked. Agusto Pro MD social history reviewed E&M revi ewed - no changes required Agusto Pro MD smoking status Never smoker Kush Hugo social history reviewed E&M revi ewed - no changes required Victor Manuel Miller MD smoking status Never smoker Kush Anne romeo social history reviewed E&M revi ewed - no changes required Queta Vázquez smoking status Never smoker Ibis Gomes daniel smoking status Never smoker Ibis Gomes n FUNCTIONAL STATUS Date Observation Value Provider HRA, CV Assess/Plan, Angina (inactive) Management Plan continue current therapy Rosendo Zamudio HRA, CV Assess/Plan, Angina (inactive) Management Plan continue current therapy Sam Valles HRA, CV Assess/Plan, Angina (inactive) Management Plan continue current therapy Agusto Pro MD HRA, CV Assess/Plan, Angina (inactive) Management Plan continue current therapy Dominique Schmitz HRA, CV Assess/Plan, Angina (inactive) Management Plan continue current therapy Agusto Pro MD HRA, CV Assess/Plan, Angina (inactive) Management Plan continue current therapy Wade Roberts FAMILY HISTORY Family Member Condition Father NE male <55 Mother NE female <65 Mother Family History Coron cristin Heart Disease female < 65: Father Family History Coron cristin Heart Disease male < 55: INSURANCE PROVIDERS Payer name Policy type / Coverage type [employer] party ID [facility] [id number] ADVANCE DIRECTIVES Name Date DISCUSSED - NO DECISION MADE TREATMENT PLAN Date Name Performer [id number],S, Sam paris [id number],S,w ill continue on rybelsus h as been exercising frequently Sam Valles [id number],S, H is updated medication list for this problem includes: Vascepa 1 Gram Capsule (Icosapent ethyl) ..... Take 2 capsule by mouth twice a day Rosuvastatin 40 Mg Tablet (Rosuvastatin) ..... Take 1 tablet nightly Sam Valles [id number],S,w ell controlled B P today: 134/83 P rior BP: 139/86 (02/15/2023) Labs Reviewed: C reat: 0.96 (04/24/2022) C hol: 119 (04/24/2022) HDL: 36 (04/24/2022) LDL: 51 MG/DL (CALC) (04/24/2022) T (04/24/2022) His updated medication list for this problem includes: Metoprolol Succinate 200 Mg Tablet Extended Release 24 Hr (Metoprolol succinate) ..... Take 1 tablet once daily Spironolactone 50 Mg Tablet (Spironolactone) ..... Take 1 tablet by mouth once a day Losartan 100 Mg Tablet (Losartan) ..... Take 1 tablet once a day Sam Valles [id number],SM yoview scan was normal. Pt and his daughter had many questions regarding risk reduction. I recommend to continue Roberto and his current medications. His BP is well controlled. He complains of noctural cough, will try benadril and prilosec Sam Valles [id number],SSam [id number],SSam [id number],B, B P today: 139/86 P rior BP: 176/108 (03/19/2022) Labs Reviewed: C reat: 0.96 (04/24/2022) C hol: 119 (04/24/2022) HDL: 36 (04/24/2022) LDL: 51 MG/DL (CALC) (04/24/2022) T (04/24/2022) His updated medication list for this problem includes: Metoprolol Succinate 200 Mg Tablet Extended Release 24 Hr (Metoprolol succinate) ..... Take 1 tablet once daily Spironolactone 50 Mg Tablet (Spironolactone) ..... Take 1 tablet by mouth once a day Losartan 100 Mg Tablet (Losartan) ..... Take 1 tablet once a day Sam Valles [id number],S, H is updated medication list for this problem includes: Vascepa 1 Gram Capsule (Icosapent ethyl) ..... Take 2 capsule by mouth twice a day Rosuvastatin 40 Mg Tablet (Rosuvastatin) ..... Take 1 tablet nightly Sam Valles [id number],S,B P is better controlled now. Pt had a new Ct calcium scoring of 960. LDL is 51. Will try vascepa for triglycerides. Will try rybelsus for better glycemic control. His updated medication list for this problem includes: Metoprolol Succinate 200 Mg Tablet Extended Release 24 Hr (Metoprolol succinate) ..... Take 1 tablet once daily Sam Aguirreri [id number],S, W eight loss advised Dominiquechiqui Fordtodd [id number],C, H is updated medication list for this problem includes: Toprol Xl 200 Mg Tablet Extended Release 24 Hr (Metoprolol succinate) ..... 1 tablet once a day Dominiquechiqui Fordtodd [id number],C, Will check BMP for potassium level and lipid panel in one month. H is updated medication list for this problem includes: Vascepa 1 Gram Capsule (Icosapent ethyl) ..... Take 2 capsule by mouth twice a day Rosuvastatin 40 Mg Tablet (Rosuvastatin) ..... Take 1 tablet every night Dominique Schmitz [id number],C,B P still markedly elevated. Will add aldactone 50 mg daily. Will obtain home sleep study and renal artery duplex. B P today: 176/108 P rior BP: 170/100 (05/10/2021) Labs Reviewed: C reat: 0.93 (09/26/2019) C hol: 97 (09/26/2019) HDL: 40 (09/26/2019) LDL: 39 (09/26/2019) His updated medication list for this problem includes: Losartan 100 Mg Tablet (Losartan) ..... Take 1 tablet once a day Toprol Xl 200 Mg Tablet Extended Release 24 Hr (Metoprolol succinate) ..... 1 tablet once a day Dominique Schmitz [id number],S, S leep study in 08/2016 was normal. Dominique Schmitz [id number],C,Weight loss a dvised Dominique Schmitz [id number],C, H is updated medication list for this problem includes: Vascepa 1 Gram Capsule (Icosapent ethyl) ..... Take 2 capsule by mouth twice a day Rosuvastatin 40 Mg Tablet (Rosuvastatin) ..... Take 1 tablet every night Dominique Schmitz [id number],C, BP is 170/100 and will increase Toprolol XL to 200 mg daily. BP today: 170/100 P rior BP: 143/90 (02/19/2020) Labs Reviewed: C reat: 0.93 (09/26/2019) C hol: 97 (09/26/2019) HDL: 40 (09/26/2019) LDL: 39 (09/26/2019) His updated medication list for this problem includes: Toprol Xl 200 Mg Tablet Extended Release 24 Hr (Metoprolol succinate) ..... 1 tablet once a day Losartan 100 Mg Tablet (Losartan) ..... Take 1 tablet once a day Dominique Schmitz [id number],C,D oes not have CP or SOB. BP is 170/100 and will increase Toprolol XL to 200 mg daily. TGs are at 180, will switch from fish oil to Vascepa. Will obtain lipid panel in 2 months. Will obtain echo. H is updated medication list for this problem includes: Toprol Xl 100 Mg Oral Tablet Extended Release 24 Hour (Metoprolol succinate) ..... One tab daily. Aspirin 81 Mg Oral Tablet (Aspirin) ..... One tab. daily Dominiuqe Schmitz Cardiology:He is now on ozempic. Rosendo Zamudio Cardiology:BP well c ontrolled. BP today: 130/80 P rior BP: 134/83 (03/18/2023) H is updated medication list for this problem includes: Metoprolol Succinate 200 Mg Tablet Extended Release 24 Hr (Metoprolol succinate) ..... Take 1 tablet once daily Spironolactone 50 Mg Tablet (Spironolactone) ..... Take 1 tablet by mouth once a day Losartan 100 Mg Tablet (Losartan) ..... Take 1 tablet once a day Rosendo Zamudio Cardiology: H is updated medication list for this problem includes: Vascepa 1 Gram Capsule (Icosapent ethyl) ..... Take 2 capsule by mouth twice a day Rosuvastatin 40 Mg Tablet (Rosuvastatin) ..... Take 1 tablet nightly This visit has been a part of the consistent, comprehensive, and ongoing management of the chronic medical condition(s) listed above for the patient. Rosendo Zamudio Cardiology:He wanted to discuss imaging options. He expressed interest in the [facility] test. We have CT coronary general available but not [facility]. He will inquire with [facility] to see where he could go for test. H is updated medication list for this problem includes: Metoprolol Succinate 200 Mg Tablet Extended Release 24 Hr (Metoprolol succinate) ..... Take 1 tablet once daily Rosendo Sawantelsalucy Cardiology:Is now on ozempic Brent andrea Zamudio Cardiology Sam Valles Cardiology:will cont inue on rybelsus h as been exercising frequently Sam Valles Cardiology: H is updated medication list for this problem includes: Vascepa 1 Gram Capsule (Icosapent ethyl) ..... Take 2 capsule by mouth twice a day Rosuvastatin 40 Mg Tablet (Rosuvastatin) ..... Take 1 tablet nightly Sam Valles Cardiology:well cont rolled B P today: 134/83 P rior BP: 139/86 (02/15/2023) Labs Reviewed: C reat: 0.96 (04/24/2022) C hol: 119 (04/24/2022) HDL: 36 (04/24/2022) LDL: 51 MG/DL (CALC) (04/24/2022) T (04/24/2022) His updated medication list for this problem includes: Metoprolol Succinate 200 Mg Tablet Extended Release 24 Hr (Metoprolol succinate) ..... Take 1 tablet once daily Spironolactone 50 Mg Tablet (Spironolactone) ..... Take 1 tablet by mouth once a day Losartan 100 Mg Tablet (Losartan) ..... Take 1 tablet once a day Sam Reena Cardiology:Myoview s can was normal. Pt and his daughter had many questions regarding risk reduction. I recommend to continue Rybelsus and his current medications. His BP is well controlled. He complains of noctural cough, will try benadril and prilosec [facility]: B P today: 139/86 P rior BP: 176/108 (03/19/2022) Labs Reviewed: C reat: 0.96 (04/24/2022) C hol: 119 (04/24/2022) HDL: 36 (04/24/2022) LDL: 51 MG/DL (CALC) (04/24/2022) T (04/24/2022) His updated medication list for this problem includes: Metoprolol Succinate 200 Mg Tablet Extended Release 24 Hr (Metoprolol succinate) ..... Take 1 tablet once daily Spironolactone 50 Mg Tablet (Spironolactone) ..... Take 1 tablet by mouth once a day Losartan 100 Mg Tablet (Losartan) ..... Take 1 tablet once a day Sam Reena Cardiology: H is updated medication list for this problem includes: Vascepa 1 Gram Capsule (Icosapent ethyl) ..... Take 2 capsule by mouth twice a day Rosuvastatin 40 Mg Tablet (Rosuvastatin) ..... Take 1 tablet nightly Sam Reena Cardiology:BP is bet ter controlled now. Pt had a new Ct calcium scoring of 960. LDL is 51. Will try vascepa for triglycerides. Will try rybelsus for better glycemic control. His updated medication list for this problem includes: Metoprolol Succinate 200 Mg Tablet Extended Release 24 Hr (Metoprolol succinate) ..... Take 1 tablet once daily Sam Aguirreri Cardiology: W eight loss advised Dominique Schmitz Cardiology: H is updated medication list for this problem includes: Toprol Xl 200 Mg Tablet Extended Release 24 Hr (Metoprolol succinate) ..... 1 tablet once a day Dominique Schmitz Cardiology: Will kalpana ck BMP for potassium level and lipid panel in one month. H is updated medication list for this problem includes: Vascepa 1 Gram Capsule (Icosapent ethyl) ..... Take 2 capsule by mouth twice a day Rosuvastatin 40 Mg Tablet (Rosuvastatin) ..... Take 1 tablet every night Dominique Schmitz Cardiology:BP still markedly elevated. Will add aldactone 50 mg daily. Will obtain home sleep study and renal artery duplex. B P today: 176/108 P rior BP: 170/100 (05/10/2021) Labs Reviewed: C reat: 0.93 (09/26/2019) C hol: 97 (09/26/2019) HDL: 40 (09/26/2019) LDL: 39 (09/26/2019) His updated medication list for this problem includes: Losartan 100 Mg Tablet (Losartan) ..... Take 1 tablet once a day Toprol Xl 200 Mg Tablet Extended Release 24 Hr (Metoprolol succinate) ..... 1 tablet once a day Dominique Schmitz Cardiology: S leep study in 08/2016 was normal. Dominique Schmitz Cardiology:Weight loss advised B janelle Schmitz Cardiology: H is updated medication list for this problem includes: Vascepa 1 Gram Capsule (Icosapent ethyl) ..... Take 2 capsule by mouth twice a day Rosuvastatin 40 Mg Tablet (Rosuvastatin) ..... Take 1 tablet every night Dominique Schmitz Cardiology: BP is 170/100 and will increase Toprolol XL to 200 mg daily. BP today: 170/100 P rior BP: 143/90 (02/19/2020) Labs Reviewed: C reat: 0.93 (09/26/2019) C hol: 97 (09/26/2019) HDL: 40 (09/26/2019) LDL: 39 (09/26/2019) His updated medication list for this problem includes: Toprol Xl 200 Mg Tablet Extended Release 24 Hr (Metoprolol succinate) ..... 1 tablet once a day Losartan 100 Mg Tablet (Losartan) ..... Take 1 tablet once a day Dominique Nadir Cardiology:Does not have CP or SOB. BP is 170/100 and will increase Toprolol XL to 200 mg daily. TGs are at 180, will switch from fish oil to Vascepa. Will obtain lipid panel in 2 months. Will obtain echo. H is updated medication list for this problem includes: Toprol Xl 100 Mg Oral Tablet Extended Release 24 Hour (Metoprolol succinate) ..... One tab daily. Aspirin 81 Mg Oral Tablet (Aspirin) ..... One tab. daily Dominique Schmitz Cardiology:Cardiac cath revealed mild CAD. [facility] Cardiology:BP today: 143/90 P rior BP: 173/94 (05/11/2019) His updated medication list for this problem includes: Losartan Potassium 100 Mg Oral Tablet (Losartan potassium) ..... 1 tab daily Toprol Xl 100 Mg Oral Tablet Extended Release 24 Hour (Metoprolol succinate) ..... One tab daily. [facility] Cardiology:Denies CP or SOB. Cardiac cath revealed mild CAD. His updated medication list for this problem includes: Toprol Xl 100 Mg Oral Tablet Extended Release 24 Hour (Metoprolol succinate) ..... One tab daily. Aspirin 81 Mg Oral Tablet (Aspirin) ..... One tab. daily [facility] Cardiology:LDL now 3 9 on Crestor. Continue risk factor modification. His updated medication list for this problem includes: Rosuvastatin Calcium 40 Mg Oral Tablet (Rosuvastatin calcium) ..... 1 tab daily at night CHOL: 97 (09/26/2019) LDL: 39 (09/26/2019) HDL: 40 (09/26/2019) LDL: 95 (09/26/2019) [facility] Cardiology: Adrián gonzalez was recently started on Metformin for A1c 6.2%. Agusto Pro MD Cardiology Agusto Pro MD Cardiology:Instructlisa lim patient to increase his Toprol XL from 50 mg one tab daily to 100 mg one tab daily. BP today: 173/94 P rior BP: 152/94 (04/03/2019) His updated medication list for this problem includes: Losartan Potassium 100 Mg Oral Tablet (Losartan potassium) ..... 1 tab daily Toprol Xl 100 Mg Oral Tablet Extended Release 24 Hour (Metoprolol succinate) ..... One tab daily. Aspirin 81 Mg Oral Tablet (Aspirin) ..... One tab. daily Luis Pham Cardiology: H is updated medication list for this problem includes: Rosuvastatin Calcium 40 Mg Oral Tablet (Rosuvastatin calcium) ..... 1 tab daily at night Luis Pham Cardiology:Pt has QS complex in V2 which was not seen last year, it may represent NE age undetermined. Will schedule cardiac cath. Luis Pham Cardiology:Recent ca lcium score elevated total 496, LAD 271, LCX 76, RCA 149. Significant family history of early CAD in multiple siblings. Risk factors of DM, htn, hyperlipidemia. Insurance required a stress test before proceeding with cardiac cath. Patient had a nuclear exercise stress test and myoview scan was reportedly normal, however pt has QS complex in V2 which was not seen last year, it may represent NE age undetermined. Will schedule cardiac cath. His updated medication list for this problem includes: Toprol Xl 100 Mg Oral Tablet Extended Release 24 Hour (Metoprolol succinate) ..... One tab daily. Aspirin 81 Mg Oral Tablet (Aspirin) ..... One tab. daily Luis Pham Cardiology: W eight loss and exercise advised. Michele Dey Cardiology:He was re cently started on Metformin for A1c 6.2%. Mcihele Dey Cardiology:Change to Crestor 40mg His updated medication list for this problem includes: Rosuvastatin Calcium 40 Mg Oral Tablet (Rosuvastatin calcium) ..... 1 tab daily at night Michele Dey Cardiology:Increase Losartan to 100mg daily. BP today: 152/94 P rior BP: 142/80 (06/04/2018) The following medications were removed from the medication list: Cozaar 25 Mg Oral Tablet (Losartan potassium) ..... Po daily His updated medication list for this problem includes: Losartan Potassium 100 Mg Oral Tablet (Losartan potassium) ..... 1 tab daily Toprol Xl 100 Mg Oral Tablet Extended Release 24 Hour (Metoprolol succinate) ..... 1/2 tab daily Aspirin 81 Mg Oral Tablet (Aspirin) ..... One tab. daily Michele Kyte Cardiology:Recent ca lcium score elevated total 496, LAD 271, LCX 76, RCA 149. Significant family history of early CAD in multiple siblings. Risk factors of DM, htn, hyperlipidemia. Will arrange cardiac cath. Orders: [phone] HIGH Complex ([id number]) C ardiac Cath - Left - [facility] (CPT-12395) His updated medication list for this problem includes: Toprol Xl 100 Mg Oral Tablet Extended Release 24 Hour (Metoprolol succinate) ..... 1/2 tab daily Aspirin 81 Mg Oral Tablet (Aspirin) ..... One tab. daily Michele Kyte Cardiology follow up :His updated medication list for this problem includes: Simvastatin 40 Mg Oral Tablet (Simvastatin) ..... One tab. daily [facility] Cardiology follow up :BP today: 142/80 P rior BP: 140/70 (05/27/2017) His updated medication list for this problem includes: Cozaar 25 Mg Oral Tablet (Losartan potassium) ..... Po daily Toprol Xl 100 Mg Oral Tablet Extended Release 24 Hour (Metoprolol succinate) ..... 1/2 tab daily [facility] Cardiology follow up :Orders: E KG ([id number]) C omplete Echo (CPT-35116) [facility] Cardiology follow up :Orders: E KG ([id number]) C omplete Echo ([id number]) [facility] Cardiology:Sleep study in was normal. [facility] Cardiology:Recommend ing to check liver and lipid panels periodically. His updated medication list for this problem includes: Simvastatin 40 Mg Oral Tablet (Simvastatin) ..... One tab. daily [facility] Cardiology:BP is wel l controlled. BP today: 140/70 P rior BP: 130/90 (07/23/2016) His updated medication list for this problem includes: Cozaar 25 Mg Oral Tablet (Losartan potassium) ..... Po daily Toprol Xl 100 Mg Oral Tablet Extended Release 24 Hour (Metoprolol succinate) ..... 1/2 tab daily [facility] Cardiology:He denies chest pain or SOB. EKG today is normal. [facility] Cardiology Follow up :Weight loss and exercise advised. [facility] Cardiology Follow up :Orders: Lora ash Study Home (CPT-01479) STOP BANG score is at least 4. [facility] Cardiology Follow up :His updated medication list for this problem includes: Simvastatin 40 Mg Tabs (Simvastatin) ..... One tab. daily Fish Oil Concentrate 1000 Mg Caps ([place]-3 fatty acids) .... One tab. daily [facility] Cardiology Follow up :BP today: 130/90 P rior BP: 144/80 (01/02/2016) His updated medication list for this problem includes: Cozaar 25 Mg Oral Tabs (Losartan potassium) ..... Po daily Toprol Xl 100 Mg Oral [id number] (Metoprolol succinate) ..... 1/2 tab daily Aspirin 81 Mg Tabs (Aspirin) ..... One tab. daily [facility] Cardiology Follow up:No recurren ce. [facility] Cardiology:His updat ed medication list for this problem includes: Simvastatin 40 Mg Tabs (Simvastatin) ..... One tab. daily [facility] Cardiology:BP today: 144/80 P rior BP: 156/96 (05/24/2015) His updated medication list for this problem includes: Cozaar 25 Mg Oral Tabs (Losartan potassium) ..... Po daily Toprol Xl 100 Mg Oral [id number] (Metoprolol succinate) ..... 1/2 tab daily Aspirin 81 Mg Tabs (Aspirin) ..... One tab. daily Wade Roberts Cardiology:No chest pain. Aysedaniel denisse Alejandra Cardiology Victor Manuel Miller MD Cardiology Victor Manuel Miller MD Cardiology Victor Manuel Miller MD Cardiology Victor Manuel Miller MD FOLLOW UP: H is updated medication list for this problem includes: Toprol Xl 100 Mg Oral [id number] (Metoprolol succinate) ..... 1/2 tab daily Aspirin 81 Mg Tabs (Aspirin) ..... One tab. daily Queta Blunt Date Name Microalb/Creatinine Urine, Random Lipoprotein (a) Stress Exercise Card iolite CT, Coronary Calcium Score RPM (remote patient monitoring) LIPID PANEL BASIC METABOLIC PANE L W/EGFR Sleep Study Home Renal Artery Duplex LIPID PANEL Complete Echo PROTHROMBIN TIME WIT H INR LIPID PANEL CBC (INCLUDES DIFF/P LT) BASIC METABOLIC PANE L W/EGFR Stress Exercise Card iolite LIPID PANEL CBC (INCLUDES DIFF/P LT) BASIC METABOLIC PANE L W/EGFR PROTHROMBIN TIME WIT H INR CT, Coronary Calcium Score Complete Echo Sleep Study Home Complete Echo STR - Nuclear HISTORY OF PROCEDURES Procedure Date Procedure Name Provider Procedure Notes S tatus Complex e/m visit add on Agusto Pro MD completed EKG Agusto Pro MD completed CT- Coronary CA score Agusto Pro MD completed EKG Agusto Pro MD completed EKG Agusto Pro MD completed Cardiolite, 2 units Agusto Pro MD c ompleted SPECT Images Agusto Pro MD complete d Stress EKG Agusto Pro MD completed CT- Coronary CA score Agusto Pro MD completed EKG Agusto Pro MD completed EKG Agusto Pro MD completed SNOMED-CT: [id number] 432196 Current Medications Documented Agusto Pro MD completed SNOMED-CT: 218127696 703294 Current Medications Documented Agusto Pro MD completed EKG Agusto Pro MD completed SNOMED-CT: 907836081 413018 Current Medications Documented Agusto Pro MD completed SNOMED-CT: [id number] Physical Exam, Performed: Pulse Exam of Foot Victor Manuel Miller MD completed SNOMED-CT: 064212299 856375 Current Medications Documented Victor Manuel Miller MD completed EKG Agusto Pro MD completed
--- OUTSIDE RECORDS SUMMARY | 2024-06-12 02:02 | XMS_ITS | Clinical Summary ---
Author Organization [facility] Address [address] [place] [address] Care Team Providers Care Greenskeeper Laborer Name Role Phone Deon Kim MD Primary Care Provider [phone] [facility],non-owned Affiliates and Associated Physician Practices is amultiple site organization consisting of ambulatory clinics and hospital sitesin [place], [place], [place] and [place]. This disclosure is being madepursuant to the Care Everywhere program and may not contain all information available regarding this patient. Last updated 18.[facility] Allergies No known active allergies Medications * Be aware that medications may not be up to date on this document. Alwaysverify current medications with the patient. Medication Sig Dispensed Refills Start Date End Date Status atorvastatin (LIPITOR) 20 MG tablet 40 mg at bedtime 03/18/2018 Active losartan (COZAAR) 25 MG tablet at bedtime 05/27/2018 Active TOPROL XL 100 MG tablet 50 mg at bedtime 04/15/2018 Active aspirin (ASPIRIN) 81 MG tablet Take 81 mg by mouth once daily Active [place]-3 Fatty Acids (FISH OIL PO) Take by mouth once daily Active ondansetron (ZOFRAN) 8 MG tabletIndications:Phil sea and vomiting, intractability of vomiting not specified, unspecified vomiting type Take 1 tablet by mouth every 6 hours as needed for Nausea/Vomiting 10 tablet 07/25/2018 Active Additional Information Patient not taking.Reported on 02/10/2021 metFORMIN (GLUCOPHAGE) 500 MG tablet metformin 500 mg tablet Active simvastatin (ZOCOR) 40 MG tablet simvastatin 40 mg tablet TAKE 1 TABLET AT BEDTIME FOR CHOLESTEROL Active rosuvastatin (CRESTOR) 40 MG tablet 11/20/2020 Active Active Problems Problem Noted Date Diagnosed Date Other viral warts 02/10/2021 Solar lentiginosis 02/10/2021 Multiple benign melanocytic nevi of upper extremity, lower extremity, and trunk 02/10/2021 Seborrheic keratosis 02/10/2021 Family History Medical History Relation Name Comments Cancer Father Allergy (Severe) Neg Hx CVA Neg Hx Cancer - Breast Neg Hx Cancer - Skin, Melanoma Neg Hx Cancer - Skin, Non Melanoma Neg Hx Eczema Neg Hx Hemophilia Neg Hx Psoriasis Neg Hx Rashes/Skin Problems Neg Hx Relation Name Status Comments Father Social History Tobacco Use Types Packs/Day Years [...] Mass Index 28.12 09/16/2018 10:28 AM CDT Plan of Treatment Health Maintenance Due Date Last Done Comments COLOGUARD (AGES 45-75) - COL ON CA SCREENING 1961 COLON MONITORING 1961 COLONOSCOPY - COLON CA SCREENING 1961 CT COLONOGRAPHY - COLON CA SCREENING 1961 Colorectal Cancer Screening 1961 FIT - COLON CA SCREENING 1961 FLEX SIG - COLON CA SCREENING 1961 HIV SCREENING 1976 HEPATITIS C SCREENING 08/31/1979 DTAP/TDAP/TD VACCINES (1 - Tdap) 1980 PNEUMOCOCCAL VACCINE 50+ (1 of 1 - PCV) 09/05/2011 ZOSTER VACCINE (1 of 2) 09/05/2011 COVID-19 VACCINE (1 - 2023-2 5 season) 2024 INFLUENZA VACCINE (#1) 2024 02/26/2018 DEPRESSION SCREENING 05/13/2024 Respiratory Syncytial Virus (RSV) Vaccine Pt: or over 60 yrs (1 - 1-dose 75+ series) 2036 HEPATITIS B VACCINE Aged Out No longe r eligible based on patient's age to complete this topic HIB VACCINE Aged Out No longer eligi ble based on patient's age to complete this topic HPV VACCINE Aged Out No longer eligi ble based on patient's age to complete this topic MENINGOCOCCAL (Group B) VACCINE Aged Out No longer eligible based on patient's age to complete this topic MENINGOCOCCAL VACCINE Aged Out No efra stacy eligible based on patient's age to complete this topic PNEUMOCOCCAL VACCINE Aged Out No long er eligible based on patient's age to complete this topic Medical Devices Implanted Type Area Lab Coordinator Device Identifier Shelf Expiration Date Model / Serial / Lot Mesh Srg 3dmax 7x5in Xl 3d Crv Contr Sl Implanted:Qty: 1 on 07/25/2018 by Joshua Hopkins MD at [facility] Right: Abdomen [employer] 10/07/2022 [id number] / / [id number] Mesh Srg 3dmax 7x5in Xl 3d Crv Contr Sl Implanted:Qty: 1 on 07/25/2018 by Joshua Hopkins MD at [facility] Left: Abdomen [employer] 09/07/2022 [id number] / / [id number] Care Teams Greenskeeper Laborer Relationship Specialty Start Date End Date Deon Kim MD [address] [place] [address] [address] [place] [address] PCP - General 06/06/12
--- OUTSIDE RECORDS SUMMARY | 2024-06-12 02:02 | XMS_ITS | Clinical Summary ---
Author Organization [facility] Address [address] [place] [address] Care Team Providers Care Emanations Analysis Technician Name Role Phone Deon Kim MD Primary [...] Influenza, Trivalent, IM (MDV) 02/23/2021 Tdap 11/20/2017 Surgical History Surgery Date Site/Laterality Comments HERNIA REPAIR Medical History Medical History Date Comments Hypertension Hypercholesteremia Family History Medical History Relation Name Comments Cancer Father Diabetes Mother Relation Name Status Comments Father Mother Social History Tobacco Use Types Packs/Day Years Used Date Smoking Tobacco: Never Assessed Sex and Gender Information Value Date Recorded Sex Assigned at Not on file Legal 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 Gender Identity Not on file Sexual Orientation Not on file Obstetrics History Last Filed Vital Signs Vital Sign Reading Time Taken Comments Blood Pressure - - Pulse - - Temperature - - Respiratory Rate - - Oxygen Saturation - - Inhaled Oxygen Concentration - - Weight 86.2 kg (190 lb) 10/26/2022 9:34 AM CDT Height 172.7 cm (5' 8 ) 10/26/2022 9:34 AM CDT Body Mass Index 28.89 10/26/2022 9:34 AM CDT Plan of Treatment Health Maintenance Due Date Last Done Comments Colon Cancer Screening-Colonoscopy 1961 Depression Screening 1961 Hepatitis C Screening 1961 Prostate Cancer Screening-PSA 1961 Hepatitis B Screening 09/05/1979 Regular Well Visit/Exam 18-64 09/05/1979 Zoster Vaccine (1 of 2) 09/05/2011 Covid-19 Vaccine ( season) 2024 04/12/2021, 06/27/2020, 06/06/2020 Influenza Vaccine (#1) 2024 2, 02/23/2021, 02/12/2020, Additional history exists DTaP/Tdap/Td Vaccine (2 - Td or Tdap) 11/21/2027 11/20/2017 Pneumococcal vaccine <65 Aged Out No longer eligible based on patient's age to complete this topic Insurance ANTHEM ACCESS CHOICE ANTHEM ACCESS CHOICE Care Teams Emanations Analysis Technician Relationship Specialty Start Date End Date Deon Kim MD [address] [address] PCP - General Internal Medicine 10/26/22
--- OUTSIDE RECORDS SUMMARY | 2024-06-12 02:02 | XMS_ITS | Referral Summary ---
Author Organization [facility] Address [address] [place] [address] Care Team Providers Care Assembler Production Line Name Role Phone Deon Kim MD Primary Care Provider [phone] Source Comments [facility],non-owned Affiliates and Associated Physician Practices is amultiple site organization consisting of ambulatory clinics and hospital sitesin [place], [place], [place] and [place]. This disclosure is being madepursuant to the Care Everywhere program and may not contain all information available regarding this patient. Last updated 18.[facility] Allergies No known active allergies Medications * [...] 81 mg by mouth once daily Active [place]-3 Fatty Acids (FISH OIL PO) Take by [...] 09/16/2018 10:28 AM CDT Plan of Treatment Not on file Medical Devices Implanted Type Area Head Transfer Clerk Device Identifier Shelf Expiration Date Model / Serial / Lot Mesh Srg 3dmax 7x5in Xl 3d Crv Contr Sl Implanted:Qty: 1 on 07/25/2018 by Joshua Hopkins MD at [facility] Right: Abdomen [employer] 10/07/2022 [id number] / / [id number] Mesh Srg 3dmax 7x5in Xl 3d Crv Contr Sl Implanted:Qty: 1 on 07/25/2018 by Joshua Hopkins MD at [facility] Left: Abdomen [employer] 09/07/2022 [id number] / / [id number] Care Teams Assembler Production Line Relationship Specialty Start Date End Date Deon Kim MD [address] [place] [id number] PCP - General 06/06/12
[2024-06-12 11:35] VITALS: BP 165/101; PULSE 95; RESP 19; TEMP 36.2; O2SAT 96
[2024-06-12] MEDS: LACTATED RINGERS 1,000 ML 150 ML IV CONT (11:50)
--- NOTE | 2024-06-12 12:05 | WPDANESEPPF ---
Anes - Initial Pre Proc Eval Procedure: Operation Date: 06/12/24 12:30 Proposed Procedures p Colonoscopy - Charles Breaux MD Date/Time: 06/12/24 12:05 Surgeon: Charles Breaux MD Pre Op Diagnosis: Personal hx. of colon polyps Patient Data Age: 63 Gender: M Height: 1.65 m Weight: 76.6 kg Last Vital Signs Temp 36.2 C L 06/12/24 11:35 Pulse 95 06/12/24 11:35 Resp 19 06/12/24 11:35 BP 165/101 H 06/12/24 11:35 Pulse Ox 96 06/12/24 11:35 O2 Del Method Room Air 06/12/24 11:35 Allergies Allergy/AdvReac Type Severity Reaction Status Date / Time No Known Allergies Allergy Verified 06/12/24 11:33 Home Medications ?Medication ?Instructions ?Recorded ?Confirmed ?Type rosuvastatin 40 mg tablet 40 mg PO DAILY 11/11/23 06/12/24 History losartan 100 mg tablet 100 mg PO DAILY 03/02/24 06/12/24 History metformin 500 mg tablet 500 mg PO BID 03/02/24 06/12/24 History metoprolol succinate 200 mg 200 mg PO DAILY 03/02/24 06/12/24 History tablet,extended release 24 hr semaglutide 0.25 mg or 0.5 mg (2 0.25 mg subcut WEEKLY 03/02/24 06/12/24 History mg/3 mL) subcutaneous pen injector (Ozempic) aspirin 81 mg tablet,delayed 81 mg PO DAILY 03/05/24 06/12/24 History release calcium ER 600 mg (as carb,cit)-D3 1,200 tablet PO DAILY 03/05/24 06/12/24 History 12.5 mcg (500 unit) tablet, ext.rel fluticasone propionate 50 2 spray intranasal PRN PRN Allergy 03/05/24 03/05/24 History mcg/actuation nasal Symptoms spray,suspension (Flonase Allergy Relief) icosapent ethyl 1 gram capsule 2 g PO BID 03/05/24 06/12/24 History multivitamin 1 tablet PO DAILY 03/05/24 06/12/24 History spironolactone 50 mg tablet 50 mg PO DAILY 03/05/24 06/12/24 History ondansetron HCl 4 mg tablet 4 mg PO Q6H PRN nausea and 06/05/24 Rx vomiting #4 tabs Patient hx anesthesia problems: none Family hx anesthesia problems: none Results Review: All pre-operative results and documents have been reviewed as part of the pre-operative evaluation. [facility] Social History Social History Smoking status: Never smoker Alcohol intake: current Drinks per week: 6 Alcohol use details: 3 Substance use: never Substance use type: does not use Living arrangements: with family Spiritual care concerns: No Anes - Eval Final PreProcedure Day of Procedure 06/12/24 12:05 Patient weight: overweight Heart: regular rate and rhythm Lungs: clear to auscultation Airway: Mallampati scale class II Neurological: alert and oriented Last oral intake: >/= 8 hours ASA classification: III Emergent: no Anesthetic plan: proceed Anesthesia type and monitoring: general GIVS and standard monitoring Results Review: All pre-operative results and documents have been reviewed as part of the pre-operative evaluation. Informed Consent: The patient's anesthetic plan and its attendant risks and benefits were discussed with the patient/family/POA. Questions were solicited and answers provided to the satisfaction of the patient/family/POA.
--- NOTE | 2024-06-12 12:40 | PM.HPGS ---
History of Present Illness History of Present Illness Consent: Risks, benefits, and alternatives have been discussed and questions answered. Patient agrees to proceed with procedure. Chief complaint: colon screening Narrative: Candido Fountain is a 63 year old male here for screening colonoscopy, last one 10 years ago Review of Systems Review of Systems: All systems reviewed & are unremarkable except as noted in HPI and below PMFSH Past Medical History Medical History (Updated 06/12/24 @ 12:40 by Charles Breaux MD) Colon cancer screening Social History Social History Smoking status: Never smoker Alcohol intake: current Drinks per week: 6 Alcohol use details: 3 Substance use: never Substance use type: does not use Living arrangements: with family Spiritual care concerns: No Meds Home Medications and Allergies Home Medications ?Medication ?Instructions ?Recorded ?Confirmed ?Type rosuvastatin 40 mg tablet 40 mg PO DAILY 11/11/23 06/12/24 History losartan 100 mg tablet 100 mg PO DAILY 03/02/24 06/12/24 History metformin 500 mg tablet 500 mg PO BID 03/02/24 06/12/24 History metoprolol succinate 200 mg 200 mg PO DAILY 03/02/24 06/12/24 History tablet,extended release 24 hr semaglutide 0.25 mg or 0.5 mg (2 0.25 mg subcut WEEKLY 03/02/24 06/12/24 History mg/3 mL) subcutaneous pen injector (Ozempic) aspirin 81 mg tablet,delayed 81 mg PO DAILY 03/05/24 06/12/24 History release calcium ER 600 mg (as carb,cit)-D3 1,200 tablet PO DAILY 03/05/24 06/12/24 History 12.5 mcg (500 unit) tablet, ext.rel fluticasone propionate 50 2 spray intranasal PRN PRN Allergy 03/05/24 03/05/24 History mcg/actuation nasal Symptoms spray,suspension (Flonase Allergy Relief) icosapent ethyl 1 gram capsule 2 g PO BID 03/05/24 06/12/24 History multivitamin 1 tablet PO DAILY 03/05/24 06/12/24 History spironolactone 50 mg tablet 50 mg PO DAILY 03/05/24 06/12/24 History ondansetron HCl 4 mg tablet 4 mg PO Q6H PRN nausea and 06/05/24 Rx vomiting #4 tabs Allergies Allergy/AdvReac Type Severity Reaction Status Date / Time No Known Allergies Allergy Verified 06/12/24 11:33 Vital Signs Vital Signs - 24 hr 06/12/24 11:35 Temperature 97.1 F L Pulse Rate 95 Respiratory Rate 19 Blood Pressure 165/101 H Pulse Oximetry 96 Oxygen Delivery Room Air Exam Const: General: comfortable and no acute distress HENMT: Face/Nose/Sinus: Normal nares present Eyes: General: appearance normal, both eyes and all related structures Neck: Neck: no JVD Resp: Auscultation: clear to auscultation bilaterally Cardio: Rate: regular rate Rhythm: regular rhythm GI: Inspection: non-distended GI Palp: Yes Soft to palpation Skin: General skin exam: normal color Neuro: General: gait normal Speech: normal speech Extrem: General: normal to inspection Psych: Mental Status: mental status grossly normal Assessment and Plan Assessment and plan (1) Colon cancer screening: Code(s): Z12.11 - Encounter for screening for malignant neoplasm of colon Status: Acute Assessment and Plan: colonoscopy
[2024-06-12 12:57] VITALS: BP 139/89; PULSE 90; RESP 17; O2SAT 98
[2024-06-12 13:07] VITALS: BP 133/97; PULSE 84; RESP 18; O2SAT 100
[2024-06-12 13:17] VITALS: BP 142/106; PULSE 72; RESP 15; O2SAT 100
== END 2024-06-12 13:28 | disposition home or self-care (01) ==
PROVIDERS: PCP Internal Medicine; Visit Provider Internal Medicine Gastroenterology
PROC: 0DJD8ZZ Inspection of Lower Intestinal Tract, Via Natural or Artificial Opening Endoscopic (ICD-10-PCS; CPT 45378; principal; 2024-06-12 12:30)
DX: Z12.11 Encounter for screening for malignant neoplasm of colon (principal); K64.8 Other hemorrhoids; Z86.0100 Personal history of colon polyps, unspecified
CPT/HCPCS: 45378; J2003; J2704; J7120